=== PATIENT | female | born 1995 | race Two or more races ===

== ENCOUNTER 2022-09-24 14:37 | Emergency (ER) | payer MEDICAID, OTHER ==
[~2022-09-24] VITALS: Ht 162.6 cm; Wt 109.0 kg
[2022-09-24 15:12] VITALS: BP 125/74
[2022-09-24] MEDS ORDERED: IBUP800T27 PO (17:13)
[2022-09-24] MEDS ORDERED: METH750T22 PO (17:13)
[2022-09-24] MEDS ORDERED: IBUPROFEN 800 MG TAB PO ONE (17:15)
== END 2022-09-24 17:36 | disposition home or self-care (01) ==
LOC: ER 14:40
DX: S16.1XXA Strain of muscle, fascia and tendon at neck level, initial encounter (principal); S39.012A Strain of muscle, fascia and tendon of lower back, initial encounter; Z88.8 Allergy status to other drugs, medicaments and biological substances; V43.52XA Car driver injured in collision with other type car in traffic accident, initial encounter; Y93.89 Activity, other specified; Y92.89 Other specified places as the place of occurrence of the external cause; Y99.8 Other external cause status
CPT/HCPCS: 72040; 72100

== ENCOUNTER 2022-10-06 10:58 | Emergency (ER) | payer MEDICAID, OTHER ==
[~2022-10-06] VITALS: Ht 165.1 cm; Wt 113.9 kg
[~2022-10-06 10:58] MED LIST: IBUP800T27 PO; METH750T22 PO
[2022-10-06 11:24] VITALS: BP 130/91
[2022-10-06] MEDS ORDERED: ACETAMINOPHEN 500 MG TAB PO ONE (12:00)
[2022-10-06] MEDS ORDERED: LORA-483 GT (13:25)
[2022-10-06] MEDS ORDERED: IBUP800T26 PO (13:25)
== END 2022-10-06 13:40 | disposition home or self-care (01) ==
LOC: ER 10:58
DX: H92.03 Otalgia, bilateral (principal); J02.9 Acute pharyngitis, unspecified; Z20.822 Contact with and (suspected) exposure to COVID-19
CPT/HCPCS: 36415; 87070; 87426; 87804; 87880